=== PATIENT | male | born 1965 | race Caucasian/White ===

== ENCOUNTER 2017-01-16 14:54 | Emergency (ER) | payer OTHER ==
--- NOTE | 2017-01-16 15:13 | UC ---
Ear Complaint HPI - HPI Summary HPI Summary: 52 year old male presents with complains of left ear pain. - History of Current Complaint Stated Complaint: EAR PAIN Time Seen by Provider: 01/16/17 15:08 - Allergies/Home Medications Allergies/Adverse Reactions: Allergies Allergy/AdvReac Type Severity Reaction Status Date / Time Penicillins Allergy Mild Rash Verified 01/16/17 15:20 PMH/Surg Hx/FS Hx/Imm Hx - Surgical History Surgical History: None Review of Systems Constitutional: Negative Skin: Negative Eyes: Negative ENT: Ear Ache Respiratory: Negative Cardiovascular: Negative Gastrointestinal: Negative Genitourinary: Negative Motor: Negative Neurovascular: Negative Musculoskeletal: Negative Neurological: Negative Psychological: Negative All Other Systems Reviewed And Are Negative: Yes Physical Exam Triage Information Reviewed: Yes Eye Exam: Normal ENT Exam: Other - left external ear erythema Dental Exam: Normal Neck exam: Normal Neck: Positive: 1 Respiratory Exam: Normal Cardiovascular Exam: Normal Abdominal Exam: Normal Musculoskeletal Exam: Normal Neurological Exam: Normal Psychological Exam: Normal Skin Exam: Normal Ear Complaint Course/Dx - Differential Dx/Diagnosis Provider Diagnoses: left ear otitis externa Discharge - Discharge Plan Condition: Stable Disposition: HOME Prescriptions: Amoxicillin CAP* [Amoxicillin 500 MG CAP*] 500 mg PO TID #30 cap Neomyc/Polym/HC 1% OTIC SUSP* [Cortisporin Otic Susp 1%*] 4 drop LEFT EAR QID # 1 btl Patient Education Materials: Earache (ED), Otitis Externa (ED) Referrals: No Primary Care Phys,NOPCP [Primary Care Provider] - If Needed
[2017-01-16 15:32] VITALS: BP 111/68
== END 2017-01-16 15:30 | disposition home or self-care (01) ==
LOC: UCCORT 14:54
DX: H60.92 Unspecified otitis externa, left ear (principal)
CPT/HCPCS: 99212; G0463

== ENCOUNTER 2017-04-19 19:25 | Emergency (ER) | payer OTHER ==
[2017-04-19 19:45] VITALS: BP 111/76
--- NOTE | 2017-04-19 20:33 | UC ---
Complaint Male HPI - HPI Summary HPI Summary: 52 year old male with dark urine . C/o lower abdominal pain, fever, & dark urine x2 days. Had fever 101 earlier today. No fever currently. Took APAP and it helped. He noticed a lower groin strain recently and having discomfort there . No n/v/d. No trauma. No pain in the scrotum. No burning with urination. [ End ] - History of Current Complaint Chief Complaint: UCGU Stated Complaint: URINARY Time Seen by Provider: 04/19/17 20:31 Hx Obtained From: Patient Onset/Duration: Gradual Onset Timing: Constant Severity Initially: Mild Severity Currently: Moderate Location: Groin Character: Constant Pressure Aggravating Factor(s): Voiding, Straining - Allergies/Home Medications Allergies/Adverse Reactions: Allergies Allergy/AdvReac Type Severity Reaction Status Date / Time Penicillins Allergy Mild Rash Verified 04/19/17 19:40 PMH/Surg Hx/FS Hx/Imm Hx Previously Healthy: Yes - Surgical History Surgical History: None - Family History Known Family History: Positive: None - Social History Occupation: Employed Full-time - maintain[employer] Alcohol Use: Rare Substance Use Type: None Smoking Status (MU): Never Smoked Tobacco - Immunization History Most Recent Influenza Vaccination: NONE 2016 Most Recent Tetanus Shot: UTD Most Recent Pneumonia Vaccination: N/A Review of Systems Constitutional: Fever Gastrointestinal: Abdominal Pain Genitourinary: Frequency, Urgency Is Patient Immunocompromised?: No All Other Systems Reviewed And Are Negative: Yes Physical Exam Triage Information Reviewed: Yes Appearance: Well-Appearing, No Pain Distress, Well-Nourished Vital Signs: Initial Vital Signs Temp 97.7 F 04/19/17 19:41 Pulse 70 04/19/17 19:41 Resp 16 04/19/17 19:41 BP 111/76 04/19/17 19:41 Pulse Ox 99 04/19/17 19:41 Vital Signs Reviewed: Yes Eye Exam: Normal ENT Exam: Normal Dental Exam: Normal Neck exam: Normal Neck: Positive: 1 Respiratory Exam: Normal Cardiovascular Exam: Normal Abdominal Exam: Normal Abdomen Description: Positive: No Organomegaly, Soft, Other: - right inguinal hernia present with tenderness to palpation mild, small, reducible, mild tenderness to palpation. no scrotal swelling .. Negative: Bruit, CVA Tenderness (R), CVA Tenderness (L), Distended, Guarding Bowel Sounds: Positive: Present Musculoskeletal Exam: Normal Neurological Exam: Normal Psychological Exam: Normal Skin Exam: Normal Complaint Male Course/Dx - Course Course Of Treatment: Right inguinal hernia that is tender and reducible with concurrent UTI, had long discussion if the hernia becomes non reducible or pain worsens then concern for strangulation ( but not at this time ) then go to ED. He is agreeable. f/u 1 day . if fever persists then go to ED. start cipro here for complicated uti - Differential Dx/Diagnosis Differential Diagnosis/HQI/PQRI: Urinary Tract Infection Provider Diagnoses: UTI in male and Right sided inguinal hernia Discharge - Discharge Plan Condition: Good Disposition: HOME Prescriptions: Ciprofloxacin TAB* [Cipro 500 MG TAB*] 500 mg PO BID #20 tab Patient Education Materials: Urinary Tract Infection in Men (ED), Inguinal Hernia (ED) Referrals: No Primary Care Phys,NOPCP [Primary Care Provider] - 1 Day Emil Cotton MD [Medical Doctor] - 1 Day (General surgeon for hernia evaluation ) Additional Instructions: As we discussed if your symptoms worsen or your fever worsens please go to the emergency room for further evaluation.
[2017-04-19] MEDS ORDERED: Ciprofloxacin TAB* 500 MG PO ONE (20:52)
--- NOTE | 2017-04-22 07:33 | UC ---
Progress - Progress Note Progress Note: E. coli positive UTI. Sensitivity not yet reported. This definitely needs follow up for evaluation. He does not have a primary, so advise that he needs to establish care with a PMD. He will need a follow up culture and possible evaluation by urology.
--- NOTE | 2017-04-23 07:52 | ED ---
Progress - Progress Note Progress Note: E. coli positive UTI. Sensitivity not yet reported. This definitely needs follow up for evaluation. He does not have a primary, so advise that he needs to establish care with a PMD. He will need a follow up culture and possible evaluation by urology. 04/23/17 cx (+). no change. Course/Dx - Course Course Of Treatment: Right inguinal hernia that is tender and reducible with concurrent UTI, had long discussion if the hernia becomes non reducible or pain worsens then concern for strangulation ( but not at this time ) then go to ED. He is agreeable. f/u 1 day . if fever persists then go to ED. start cipro here for complicated uti - Diagnoses Provider Diagnoses: UTI (urinary tract infection)
== END 2017-04-19 21:06 | disposition home or self-care (01) ==
LOC: UCCORT 19:25
DX: N39.0 Urinary tract infection, site not specified (principal); B96.20 Unspecified Escherichia coli [E. coli] as the cause of diseases classified elsewhere; K40.90 Unilateral inguinal hernia, without obstruction or gangrene, not specified as recurrent; Z88.0 Allergy status to penicillin
CPT/HCPCS: 81003; 87077; 87086; 87186; 99212; A9270-GY; G0463